=== PATIENT | male | born 1985 | race Caucasian/White ===

== ENCOUNTER → 2017-05-04 | Outpatient (CLI) | payer BC ==
--- NOTE | 2017-05-04 08:14 | REP ---
Clinical: Palpable right scrotal mass. Technique: Castillo scale and color Doppler evaluation using linear and curved array transducer with color Doppler evaluation. Findings: The bilateral testicles are normal in contour, size, echogenicity, vascularity and overall appearance. There is no evidence for intratesticular mass lesion, infectious/inflammatory process, or torsion. Multiple bilateral epididymal cysts are identified including conglomerate left-sided septated and/or adjacent cysts measuring up to 17 x 10 x 12 mm, and right-sided cysts measuring up to approximately 7 x 5 x 6 mm as well as moderate right-sided hydrocele which correspond to the patient's "palpable mass." No no varicoceles noted. Right testicle measures 4.4 x 2.0 x 2.9 cm cm. Left testicle measures 4.0 x 2.1 x 2.8 cm cm. Impression: 1. Bilateral epididymal cysts -- some of which appear complex as well as moderate right hydrocele. Right-sided findings correspond to the right-sided "palpable mass." 2. Normal appearance to the bilateral testicles. Signed by Shawn Mendez MD 05/04/2017 08:06 A
== END ==
LOC: M RAD 07:20
PROVIDERS: ATTEND Physician Assistant
DX: N50.3 Cyst of epididymis (principal)